=== PATIENT | male | born 1955 | race African-American/Black ===

== ENCOUNTER 2016-11-08 09:05 | Emergency (ER) | payer MEDICAID ==
[~2016-11-08] VITALS: Ht 180.3 cm; Wt 81.6 kg
[2016-11-08 10:07] LABS: Basophils # (auto) 0 uL; Basophils % (auto) 0.3 % (0.0-2.0); Eosinophils # (auto) 0 uL; Eosinophils % (auto) 0.1 % (0.0-7.0); Hematocrit 45.2 % (41.0-53.0); Hemoglobin 14.6 g/dL (13.5-17.5); Lymphocytes # (auto) 1.9 uL; Lymphocytes % (auto) 25.2 % (10.0-50.0); Mean Corpuscular Hemoglobin 30.2 pg (28.0-32.0); Mean Corpuscular Hgb Conc. 32.3 g/dL (32.0-36.0); Mean Corpuscular Volume 93.2 fL (80.0-100.0); Mean Platelet Volume 8.7 fL (7.4-10.4); Monocytes # (auto) 0.6 uL; Monocytes % (auto) 8.3 % (0.0-12.0); Neutrophils # (auto) 5.1 uL; Neutrophils % (auto) 66.1 % (37.0-80.0); Platelet Count (auto) 265 10^3/uL (140-450); Red Cell Distribution Width 13.9 % (11.6-16.0); White Blood Cell 7.7 10^3/uL (4.4-10.8)
[2016-11-08 10:19] LABS: Partial Thromboplastin Time 28.3 sec (22.64-33.71); Prothrombin Time 10.3 sec (9.37-12.3)
[2016-11-08 10:36] LABS: Albumin 4.4 g/dL (3.4-5.0); BUN/Creatinine Ratio 17.8; Bilirubin, Total 0.9 mg/dL (0.2-1.0); Calcium 9.2 mg/dL (8.5-10.1); Potassium 3.5 mmol/L (3.5-5.1); Total Protein 8.5 g/dL (6.4-8.2)
[2016-11-08] MEDS ORDERED: SODIUM CHLORIDE 0.9% 1,000 ML IVB ONE (10:57)
[2016-11-08] MEDS ORDERED: GASTROGRAFIN 30 ML SOL ONE (10:58)
[2016-11-08 11:57] LABS: Magnesium 2.2 mg/dL (1.6-2.6)
[2016-11-08] MEDS ORDERED: IOHEXOL 300 MG/ML 100ML BOTTLE IJ ONE (13:14)
[2016-11-08 13:44] LABS: Urine Bilirubin Negative (Negative); Urine Blood Negative /uL (Negative); Urine Color Yellow (Yellow); Urine Glucose Normal (Normal); Urine Nitrite Negative (Negative); Urine RBC <1 /hpf (0 - 3); Urine Squamous Epithelial Cell FEW /hpf (<5); Urine Urobilinogen Normal (Negative); Urine pH 5.5 (5.0-8.0)
[2016-11-08 13:46] LABS: Urine Ketone 2+ (Negative)
[2016-11-08 15:06] VITALS: BP 147/102
== END 2016-11-08 15:39 | disposition home or self-care (01) ==
LOC: ER 09:05
DX: K52.9 Noninfective gastroenteritis and colitis, unspecified (principal); K62.5 Hemorrhage of anus and rectum; F12.90 Cannabis use, unspecified, uncomplicated; I10 Essential (primary) hypertension; F17.210 Nicotine dependence, cigarettes, uncomplicated
CPT/HCPCS: 36415; 71020; 74177; 80053; 81001; 83690; 83735; 85025; 85610; 85730; 86850; 86900; 86901; 99285; J7030; Q9963; Q9967

== ENCOUNTER 2016-12-13 10:52 | Inpatient (IN) | payer MEDICAID ==
[~2016-12-13] VITALS: Ht 185.4 cm; Wt 81.0 kg
[2016-12-13 12:43] LABS: Basophils # (auto) 0 uL; Basophils % (auto) 0.3 % (0.0-2.0); Eosinophils # (auto) 0 uL; Eosinophils % (auto) 0.2 % (0.0-7.0); Hematocrit 43.1 % (41.0-53.0); Hemoglobin 14.4 g/dL (13.5-17.5); Lymphocytes # (auto) 1.8 uL; Lymphocytes % (auto) 21.2 % (10.0-50.0); Mean Corpuscular Hgb Conc. 33.4 g/dL (32.0-36.0); Mean Corpuscular Volume 92.6 fL (80.0-100.0); Mean Platelet Volume 8.4 fL (7.4-10.4); Monocytes # (auto) 1.1 uL; Monocytes % (auto) 12.9 % (0.0-12.0); Neutrophils # (auto) 5.4 uL; Neutrophils % (auto) 65.4 % (37.0-80.0); Platelet Count (auto) 207 10^3/uL (140-450); Red Cell Distribution Width 14.6 % (11.6-16.0); White Blood Cell 8.3 10^3/uL (4.4-10.8)
[2016-12-13 13:05] LABS: Albumin 4.5 g/dL (3.4-5.0); BUN/Creatinine Ratio 5.1; Bilirubin, Total 0.6 mg/dL (0.2-1.0); Calcium 9.8 mg/dL (8.5-10.1); Potassium 3.6 mmol/L (3.5-5.1)
[2016-12-13 16:47] LABS: Urine Bilirubin 1+ (Negative); Urine Blood Negative /uL (Negative); Urine Color Orange (Yellow); Urine Glucose Normal (Normal); Urine Ketone Negative (Negative); Urine Mucus FEW (None Seen); Urine Nitrite Negative (Negative); Urine RBC 2 /hpf (0 - 3); Urine Sperm PRESENT /hpf (None Seen); Urine Squamous Epithelial Cell FEW /hpf (<5); Urine pH 5.5 (5.0-8.0)
[2016-12-13] MEDS ORDERED: ONDANSETRON HCL 4 MG/2 ML VIAL IV ONE (17:45)
[2016-12-13 18:47] LABS: Magnesium 2.1 mg/dL (1.6-2.6)
[2016-12-13 19:08] LABS: INR 1.03 (0.9-1.15); Partial Thromboplastin Time 26.4 sec (22.64-33.71); Prothrombin Time 10.6 sec (9.37-12.3)
[2016-12-13] MEDS ORDERED: SODIUM CHLORIDE 0.9% 1,000 ML IV SCH (22:04)
[2016-12-13] MEDS ORDERED: PANTOPRAZOLE SODIUM 40 MG/10 ML VIAL IV ONE (22:15)
[2016-12-13] MEDS ORDERED: cefTRIAXone 1GM/50ML D5W 50 ML IV ONE (22:15)
[2016-12-13] MEDS ORDERED: HYDROcodone-ACET 5/325MG TAB PO PRN (22:15)
[2016-12-13] MEDS ORDERED: ONDANSETRON HCL 4 MG/2 ML VIAL IV PRN (22:15)
[2016-12-13] MEDS ORDERED: ACETAMINOPHEN 325 MG TAB PO PRN (22:15)
[2016-12-13] MEDS: metroNIDAZOLE 500MG/100ML 100 ML IV SCH (22:39)
[2016-12-14] VITALS: BP 116/72
[2016-12-14] MEDS: TEMAZEPAM 15 MG CAP PO PRN ×2 (01:59→21:57)
[2016-12-14] MEDS ORDERED: AMLO10TA2 PO (05:35)
[2016-12-14] MEDS ORDERED: LISI40TA PO (05:35)
[2016-12-14 05:48] VITALS: BP 85/53
[2016-12-14] MEDS ORDERED: INFLUENZA QUAD 2016-2017 0.5 ML SYRG IM ONE (06:00)
[2016-12-14] MEDS ORDERED: PNEUMOCOCCAL VACC POLYS 25 MCG/0.5 ML VIAL IM ONE (06:00)
[2016-12-14 06:18] LABS: Basophils # (auto) 0 uL; Basophils % (auto) 0.3 % (0.0-2.0); Eosinophils # (auto) 0 uL; Eosinophils % (auto) 0.4 % (0.0-7.0); Hematocrit 35.3 % (41.0-53.0); Hemoglobin 12.2 g/dL (13.5-17.5); Lymphocytes # (auto) 1.7 uL; Lymphocytes % (auto) 26.2 % (10.0-50.0); Mean Corpuscular Hemoglobin 31.8 pg (28.0-32.0); Mean Corpuscular Hgb Conc. 34.7 g/dL (32.0-36.0); Mean Corpuscular Volume 91.7 fL (80.0-100.0); Mean Platelet Volume 8.8 fL (7.4-10.4); Monocytes % (auto) 14.6 % (0.0-12.0); Neutrophils # (auto) 3.9 uL; Neutrophils % (auto) 58.5 % (37.0-80.0); Platelet Count (auto) 176 10^3/uL (140-450); Red Cell Distribution Width 14.6 % (11.6-16.0); White Blood Cell 6.7 10^3/uL (4.4-10.8)
[2016-12-14] MEDS: metroNIDAZOLE 500MG/100ML 100 ML IV SCH ×3 (06:27→21:57)
[2016-12-14 06:43] LABS: Albumin 3.5 g/dL (3.4-5.0); BUN/Creatinine Ratio 8.1; Bilirubin, Total 0.4 mg/dL (0.2-1.0); Calcium 8.3 mg/dL (8.5-10.1); Potassium 3.1 mmol/L (3.5-5.1); Total Protein 7.2 g/dL (6.4-8.2)
[2016-12-14 08:00] VITALS: BP 97/59
[2016-12-14 09:00] VITALS: BP 97/59
[2016-12-14] MEDS ORDERED: LISINOPRIL 20 MG TAB PO SCH (10:00)
[2016-12-14] MEDS: amLODIPine BESYLATE 5 MG TAB PO SCH (10:00)
[2016-12-14] MEDS ORDERED: HCTZ 25 MG TAB PO SCH (10:00)
[2016-12-14] MEDS: PANTOPRAZOLE SODIUM 40 MG/10 ML VIAL IV SCH (10:11)
[2016-12-14] MEDS: ENOXAPARIN SOD 30 MG/0.3 ML SYRINGE SC SCH (10:12)
[2016-12-14] MEDS: cefTRIAXone 1GM/50ML D5W 50 ML IV SCH (10:14)
[2016-12-14 13:00] VITALS: BP 104/69
[2016-12-14] MEDS: D5W/ SOD CHL 0.9%/KCL 20MEQ 1,000 ML IV SCH ×2 (14:34→21:35)
[2016-12-14 21:58] VITALS: BP 102/72
[2016-12-15 04:39] VITALS: BP 124/82
[2016-12-15] MEDS: D5W/ SOD CHL 0.9%/KCL 20MEQ 1,000 ML IV SCH ×2 (05:25→14:15)
[2016-12-15] MEDS: metroNIDAZOLE 500MG/100ML 100 ML IV SCH ×2 (05:50→14:00)
[2016-12-15 06:05] LABS: Basophils # (auto) 0 uL; Basophils % (auto) 0.3 % (0.0-2.0); Eosinophils # (auto) 0 uL; Eosinophils % (auto) 0.7 % (0.0-7.0); Hematocrit 33.6 % (41.0-53.0); Hemoglobin 11.3 g/dL (13.5-17.5); Lymphocytes # (auto) 0.9 uL; Lymphocytes % (auto) 17.9 % (10.0-50.0); Mean Corpuscular Hemoglobin 31.3 pg (28.0-32.0); Mean Corpuscular Hgb Conc. 33.6 g/dL (32.0-36.0); Mean Corpuscular Volume 93.2 fL (80.0-100.0); Mean Platelet Volume 8.8 fL (7.4-10.4); Monocytes # (auto) 0.9 uL; Monocytes % (auto) 17.4 % (0.0-12.0); Neutrophils # (auto) 3.1 uL; Neutrophils % (auto) 63.7 % (37.0-80.0); Platelet Count (auto) 164 10^3/uL (140-450); Red Cell Distribution Width 14.6 % (11.6-16.0); White Blood Cell 4.9 10^3/uL (4.4-10.8)
[2016-12-15 06:22] LABS: Albumin 3.5 g/dL (3.4-5.0); BUN/Creatinine Ratio 23.5; Bilirubin, Total 0.3 mg/dL (0.2-1.0); Calcium 8.2 mg/dL (8.5-10.1); Potassium 3.5 mmol/L (3.5-5.1)
[2016-12-15 08:00] VITALS: BP 128/95
[2016-12-15 09:00] VITALS: BP 128/95
[2016-12-15] MEDS: amLODIPine BESYLATE 5 MG TAB PO SCH (09:21)
[2016-12-15] MEDS: cefTRIAXone 1GM/50ML D5W 50 ML IV SCH (09:29)
[2016-12-15] MEDS: PANTOPRAZOLE SODIUM 40 MG/10 ML VIAL IV SCH (09:30)
[2016-12-15] MEDS: ENOXAPARIN SOD 30 MG/0.3 ML SYRINGE SC SCH (09:30)
[2016-12-15] MEDS ORDERED: LEVO500T3 PO (10:31)
[2016-12-15] MEDS ORDERED: METR500T PO (10:31)
[2016-12-15 13:00] VITALS: BP 144/100
[2016-12-15 14:04] VITALS: BP 128/95
== END 2016-12-15 15:00 | disposition home or self-care (01) | DRG 244 ==
LOC: ER 10:52 → OVERFLOW 10:53 → CENTRAL 22:58
PROVIDERS: ADMIT Internal Medicine; ATTEND Internal Medicine
DX: K57.32 Diverticulitis of large intestine without perforation or abscess without bleeding (principal); N17.0 Acute kidney failure with tubular necrosis; I12.0 Hypertensive chronic kidney disease with stage 5 chronic kidney disease or end stage renal disease; N18.5 Chronic kidney disease, stage 5; F17.210 Nicotine dependence, cigarettes, uncomplicated; E86.0 Dehydration; Z87.19 Personal history of other diseases of the digestive system; Z23 Encounter for immunization; Z71.6 Tobacco abuse counseling
CPT/HCPCS: 36415; 71010; 74176; 76775; 80053; 81001; 82150; 83690; 83735; 84132; 85025; 85610; 85730; 93005; 96374; 96375; C9113; J0696; J2405; J3490

== ENCOUNTER 2020-04-13 16:41 | Inpatient (IN) | payer MEDICAID ==
[~2020-04-13] VITALS: Ht 210.8 cm; Wt 79.8 kg
[~2020-04-13 16:41] MED LIST: AMLO10TA13 PO; LEVO500T21 PO; METR500T PO
[2020-04-13] MEDS ORDERED: SODIUM CHLORIDE 0.9% 2,000 ML IV ONE (17:00)
[2020-04-13 17:52] LABS: Neutrophils % (auto) 50.2 % (37.0-80.0); White Blood Cell 2.9 10^3/uL (4.4-10.8)
[2020-04-13 17:53] LABS: Basophils # (auto) 0 10 ^3/uL (0-0.2); Basophils % (auto) 0.6 % (0.0-2.0); Eosinophils # (auto) 0 10 ^3/uL (0-0.8); Eosinophils % (auto) 0.7 % (0.0-7.0); Lymphocytes # (auto) 1.3 10 ^3/uL (0.4-5.4); Lymphocytes % (auto) 43.4 % (10.0-50.0); Monocytes # (auto) 0.1 10 ^3/uL (0-1.3); Monocytes % (auto) 5.1 % (0.0-12.0); Neutrophils # (auto) 1.5 10 ^3/uL (1.6-8.6); Nucleated Red Blood Cells % 0.2 %; Red Blood Cells 2.39 10^6/uL (4.5-5.90)
[2020-04-13 17:54] LABS: Hematocrit 24.8 % (41.0-53.0); Hemoglobin 8.4 g/dL (13.5-17.5); Mean Corpuscular Hemoglobin 35.3 pg (28.0-32.0); Mean Corpuscular Volume 103.9 fL (80.0-100.0); Platelet Count (auto) 114 10^3/uL (140-450); Red Cell Distribution Width 14.8 % (11.8-14.3)
[2020-04-13 17:56] LABS: Albumin 2.2 g/dL (3.4-5.0); Anion Gap 9 (5-15); Blood Urea Nitrogen 47 mg/dL (7-18); Carbon Dioxide 14 mmol/L (21-32); Chloride 104 mmol/L (98-107); Glucose 78 mg/dL (74-106); Potassium 3.5 mmol/L (3.5-5.1); Sodium 127 mmol/L (136-145)
[2020-04-13 18:00] LABS: Alanine Aminotransferase 156 U/L (16-61); Alkaline Phosphatase 125 U/L (45-117); Aspartate Aminotransferase 305 U/L (15-37); BUN/Creatinine Ratio 13.3; Bilirubin, Total 0.8 mg/dL (0.2-1.0); GFR African American 23 mL/min; GFR Non-African American 19 mL/min; Total Protein 6.6 g/dL (6.4-8.2)
[2020-04-13 18:26] LABS: Calcium 8.3 mg/dL (8.5-10.1)
[2020-04-13] MEDS ORDERED: ALBUMIN 5% 250 ML IV ONE (19:00)
[2020-04-13] MEDS ORDERED: SODIUM CHLORIDE 0.9% 1,000 ML IV ONE (20:00)
[2020-04-13] MEDS ORDERED: MORPHINE SULF INJ 2 MG/ML SYRINGE 1ML IV PRN (20:45)
[2020-04-13] MEDS ORDERED: ACETAMINOPHEN 325 MG TAB PO PRN (20:45)
[2020-04-13] MEDS ORDERED: NITROGLYCERIN 0.4 MG SL TAB SL PRN (20:45)
[2020-04-13] MEDS ORDERED: TEMAZEPAM 15 MG CAP PO PRN (22:00)
[2020-04-14] VITALS (7 sets, daily range): BP systolic 113–148; BP diastolic 71–93
[2020-04-14] MEDS ORDERED: LISI40TA11 PO (00:14)
[2020-04-14] MEDS ORDERED: HYDR25TA4 PO (00:14)
[2020-04-14 05:20] LABS: Basophils # (auto) 0 10 ^3/uL (0-0.2); Basophils % (auto) 0.7 % (0.0-2.0); Eosinophils # (auto) 0 10 ^3/uL (0-0.8); Eosinophils % (auto) 0.2 % (0.0-7.0); Hematocrit 23.3 % (41.0-53.0); Hemoglobin 7.9 g/dL (13.5-17.5); Lymphocytes % (auto) 29.6 % (10.0-50.0); Mean Corpuscular Hgb Conc. 33.9 g/dL (32.0-36.0); Mean Corpuscular Volume 103.2 fL (80.0-100.0); Monocytes # (auto) 0.1 10 ^3/uL (0-1.3); Monocytes % (auto) 3.9 % (0.0-12.0); Neutrophils # (auto) 2.1 10 ^3/uL (1.6-8.6); Neutrophils % (auto) 65.6 % (37.0-80.0); Nucleated Red Blood Cells % 0.2 %; Platelet Count (auto) 106 10^3/uL (140-450); Red Blood Cells 2.25 10^6/uL (4.5-5.90); Red Cell Distribution Width 14.7 % (11.8-14.3); White Blood Cell 3.3 10^3/uL (4.4-10.8)
[2020-04-14 05:37] LABS: BUN/Creatinine Ratio 20.2; Calcium 7.7 mg/dL (8.5-10.1); Potassium 3.9 mmol/L (3.5-5.1)
[2020-04-14] MEDS ORDERED: PANTOPRAZOLE 40 MG TAB PO SCH (10:00)
[2020-04-14] MEDS ORDERED: SODIUM CHLORIDE 0.9% 1,000 ML IV SCH (13:45)
[2020-04-14] MEDS ORDERED: amLODIPine BESYLATE 5 MG TAB PO ONE (13:45)
[2020-04-14 13:57] LABS: Urine Bacteria NONE SEEN /hpf (None Seen); Urine Blood Negative /uL (Negative); Urine Hyaline Cast FEW /lpf (0 - 2); Urine Specific Gravity 1.008 (1.001-1.035); Urine WBC 1 /hpf (0 - 3)
[2020-04-14] MEDS ORDERED: LISINOPRIL 20 MG TAB PO SCH (18:00)
[2020-04-15] MEDS ORDERED: amLODIPine BESYLATE 5 MG TAB PO SCH (10:00)
== END 2020-04-14 17:07 | disposition home or self-care (01) | DRG 207 ==
LOC: ER 16:41 → TELE 16:42 → TELE-WESTW 23:25
PROVIDERS: ADMIT Nurse Practitioner; ATTEND Hospitalist
DX: I95.2 Hypotension due to drugs (principal); N18.3 Chronic kidney disease, stage 3 (moderate); E87.1 Hypo-osmolality and hyponatremia; I13.10 Hypertensive heart and chronic kidney disease without heart failure, with stage 1 through stage 4 chronic kidney disease, or unspecified chronic kidney disease; D63.8 Anemia in other chronic diseases classified elsewhere; E86.0 Dehydration; F17.210 Nicotine dependence, cigarettes, uncomplicated; Z82.49 Family history of ischemic heart disease and other diseases of the circulatory system; Z82.5 Family history of asthma and other chronic lower respiratory diseases; R64 Cachexia; N17.0 Acute kidney failure with tubular necrosis
CPT/HCPCS: 36415; 70450; 71045; 74176; 80048; 80053; 81001; 83735; 83880; 84443; 84484; 85025; 87086; 87088; 87186; 93005; 93306; 96361; 96365; 97163; G0378